=== PATIENT | female | born 1965 | race Caucasian/White ===

== ENCOUNTER 2020-06-27 20:00 | Emergency (ER) | payer OTHER ==
[2020-06-27 20:29] LABS: HEMOGLOBIN 13.9 gm/dl (12.3-15.3); RED BLOOD COUNT 4.54 M/UL (4.00-5.10); WHITE BLOOD COUNT 8.6 K/UL (4.5-11.0)
[2020-06-27 21:03] LABS: BUN/CREATININE RATIO 14 (0-10)
[2020-06-28] MEDS ORDERED: ASPIRIN CHEWABL81 MG PO (00:37)
== END 2020-06-28 00:45 | disposition home or self-care (01) ==
LOC: ER1 20:00
PROVIDERS: Physician Assistant
DX: R06.02 Shortness of breath (principal); J43.9 Emphysema, unspecified; F17.210 Nicotine dependence, cigarettes, uncomplicated
CPT/HCPCS: 71045; 80053; 82550; 82553; 83874; 83880; 84484; 85025; 85379; 85610; 85730; 93005; 99285; Q9967

== ENCOUNTER → 2021-04-12 | Outpatient (CLI) | payer OTHER ==
[~2021-04-12] MED LIST: ASPIRIN CHEWABL81 MG PO
== END ==
LOC: HEART 5 11:00
DX: R07.9 Chest pain, unspecified (principal); R53.83 Other fatigue
CPT/HCPCS: 93306